=== PATIENT | female | born 1975 | race Caucasian/White ===

== ENCOUNTER → 2020-12-12 | Outpatient (CLI) | payer OTHER ==
[~2020-12-12] MED LIST: LIDOCAINE 1% Multi-Dose 20 ML VIAL. INJ ONE
--- NOTE | 2020-12-12 14:51 | RAD ---
US BREAST BIOPSY 1ST LESION, MG DIAGNOSTICUNILAT MAMMO 12/12/2020 10:25 AM INDICATION: Left breast mass. COMPARISON: Outside imaging mammogram and left breast ultrasound. PROCEDURE: Risks and benefits were discussed with the patient for which informed consent was obtained. Patient w as placed supine on the examination table. Left breast mass localized under ultrasound guidance. Site was marked. Site prepped and draped in normal sterile fashion. 1 percent lidocaine was administered for superficial anesthetic effect. A 3 mm dermatotomy was performed. A 14-gauge biopsy needle was ins erted into the left breast mass at the 9 to 10:00 position, 7 cm from the nipple. 3 core biopsies wer e obtained. A biopsy clip was inserted along the mass. Hemostasis was obtained. Patient tolerated the procedure well. No complications were identified at the time the procedure. CC and enema views of th e left breast were obtained. FINDINGS: Biopsy clip is identified along the periphery of the mass within the upper slightly medial left breas t in satisfactory position. IMPRESSION: Status post biopsy of left breast mass at the 9-10:00 position, 7 cm from the nipple. Addendum will b e placed after pathology results are available. BI-RADS category: 4; Suspicious Recommendations: Recommendations will be updated once pathology results are available. Electronically signed by: Rose Solis MD (12/12/2020 2:49 PM) [facility]
--- NOTE | 2020-12-13 18:08 | PATHOLOGY ---
[facility] Accession Number: [id number] . 01 Material submitted: . breast - LEFT BREAST MASS 9-10 O'CLOCK 7CM FN 1.2CM. Modifiers: left, 9-10 O'CLOCK, 7CM FN . 01 Clinical history: . LEFT BREAST MASS LEFT BREAST BIOPSY OBTAINED 10:57, FORMALIN 10:58 ABNORMAL MAMMO . 02 Diagnosis: Breast tissue, left breast mass 9-10:00, 7.0 cm from nipple, needle biopsy: - Fibroadenoma. . ([facility]:mm; 12/13/2020) [facility] 12/13/2020 0954 Local . 02 Comment: There is no atypia or evidence of malignancy. . ([facility]mbianca; 12/13/2020) . 02 Electronically signed: . Refugio Mcclendon MD, Pathologist NPI- [id number] . 01 Gross description: . The specimen is received in formalin, labeled "Patti Moreno, left breast biopsy 9-10:00 7 cm from nipple". Received are multiple needle cores of fibrofatty tissue measuring 1.6 x 1.0 x 0.2 cm in aggregate dimensions. The specimen is submitted entirely in cassettes A1 through A3. The cold ischemic time is 1 minute. The total formalin fixation time is 10 hours and 52 minutes. ([facility]; 12/12/2020) QA/QA 12/12/2020 1555 Local . 02 Pathologist provided ICD-10: D24.2 . 02 CPT . 139587 Specimen Comment: A courtesy copy of this report has been sent to [phone], [phone] Specimen Comment: [phone] Specimen Comment: Report sent to Dr. AZEVEDO / DR ASCENCIO Performed at: 01 [facility] [address], [place], [place] [id number] MD Deangelo Urban MD Phone: [phone] Performed at: 02 [facility] [address] [place], [place] [id number] MD Refugio Mcclendon MD Phone: [phone]
== END | disposition home or self-care (01) ==
LOC: US 10:04
PROVIDERS: ATTEND Physician Assistant Medical
DX: N63.22 Unspecified lump in the left breast, upper inner quadrant (principal); D24.2 Benign neoplasm of left breast
CPT/HCPCS: 19083; 77065; A4648; C1819; J3490